=== PATIENT | male | born 1960 | race African-American/Black ===

== ENCOUNTER 2016-12-27 08:10 | Observation (INO) | payer OTHER, BC ==
[~2016-12-27] VITALS: Ht 185.4 cm; Wt 100.7 kg
[~2016-12-27 08:10] MED LIST: ALLERGY25 M2 PO; ASPIR 8181 M1 PO; ASPIR-TRIN325 MG PO; ASPIRIN325 MG PO; ATORVASTATIN CA40 MG PO; BENADRYL25 MG PO; CRESTOR10 MG PO; CRESTOR5 MG PO; DELTASONE20 M1 PO; FLEXERIL10 MG PO; IBUPROFEN800 MG PO; ISORDIL5 MG PO; ISOSORBIDE MONO60 MG PO; LEVOFLOXACIN500 MG PO; LISINOPRIL20 MG PO; LORTAB 5-325 M1 EACH PO; MAG-AL PLUS SUS30 ML PO; METAMUCIL POWD798 GM PO; METOPROLOL TART50 MG PO; MUCUS ER600 MG PO; NITROSTAT0.4 MG SL; PEPCID20 MG PO; PERCOCET 5/31 TABLET PO; PLAVIX75 MG PO; PREDNISONE10 MG PO; PROVENTIL,2.5 MG/3 M IH; RANEXA500 MG PO; ROBITUSSIN NIG118 ML PO; SKELAXIN800 MG PO; TESSALON PERLE100 MG PO; TOPROL XL50 MG PO; TYLENOL REGULA325 MG PO; ZESTRIL,PRINIVI20 MG PO; ZOFRAN ODT4 MG PO; [UNRECOGNIZED DRUG - REMARK]
[2016-12-27 09:39] LABS: HEMATOCRIT 40.3 % (38.0-50.0); MCH 28.8 PG (29.0-34.0); MEAN PLAT.VOLUME 10.9 uM^3 (9.0-12.4); PLATELET COUNT 235 K/uL (156-360); RBC DIS.WIDTH-CV 14.3 % (11.8-14.6); RBC DIS.WIDTH-SD 47.5 % (39-53); RED BLOOD COUNT 4.48 M/uL (4.00-5.50); WHITE BLOOD COUNT 5.3 K/uL (4.1-10.2)
[2016-12-27 09:50] LABS: CHLORIDE 106 mEq/L (99-109); POTASSIUM 4.4 mEq/L (3.7-5.4); SODIUM 140 mEq/L (136-147)
[2016-12-27 09:51] LABS: GLUCOSE 143 mg/dL (70-99)
[2016-12-27 09:53] LABS: ANION GAP 7 MEQ/L (2-14)
[2016-12-27 09:55] LABS: GFR ESTIMATE (CALCULATED) > 59 mL/min/
[2016-12-27 09:56] LABS: UREA NITROGEN (BUN) 17 mg/dL (9-23)
[2016-12-27 10:02] LABS: TROP-I INTERPRETATION NEGATIVE; TROPONIN-I < 0.01 ng/mL (0.0-0.30)
[2016-12-27] MEDS ORDERED: TRAMADOL HCL50 MG PO (12:58)
[2016-12-27] MEDS ORDERED: CLOBETASOL PROP60 GM TP (12:58)
[2016-12-27] MEDS ORDERED: IBUPROFEN800 MG PO (12:59)
[2016-12-27] MEDS ORDERED: NITROSTAT0.4 MG SL (13:00)
[2016-12-27] MEDS ORDERED: COLCRYS0.6 MG PO (13:02)
[2016-12-27] MEDS ORDERED: NEXIUM20 MG PO (13:04)
[2016-12-27] MEDS ORDERED: RANEXA500 MG PO (13:04)
[2016-12-27 13:30] VITALS: BP 148/87
[2016-12-27 14:31] VITALS: BP 148/87
[2016-12-27 15:25] VITALS: BP 104/51
[2016-12-27 16:30] LABS: TROP-I INTERPRETATION NEGATIVE; TROPONIN-I 0.02 ng/mL (0.0-0.30)
[2016-12-27 20:30] VITALS: BP 128/72
[2016-12-27 22:13] LABS: TROP-I INTERPRETATION NEGATIVE; TROPONIN-I 0.04 ng/mL (0.0-0.30)
[2016-12-27 23:19] VITALS: BP 137/76
[2016-12-28 03:39] VITALS: BP 154/91
[2016-12-28 08:00] VITALS: BP 166/88; BP 166/98
[2016-12-28 10:45] LABS: INTER. NORMALIZED RATIO 1.1; PROTHROMBIN TIME 10.7 (9.2-11.2); PTT 28.9 (25-32)
[2016-12-28 19:17] VITALS: BP 142/78
[2016-12-28 23:40] VITALS: BP 142/84
[2016-12-29 04:19] VITALS: BP 138/80
[2016-12-29 06:50] LABS: ANION GAP 7 MEQ/L (2-14); CHLORIDE 106 MEQ/L (99-109); GFR ESTIMATE (CALCULATED) > 59 mL/min/; GLUCOSE 122 mg/dL (70-99); POTASSIUM 4.1 MEQ/L (3.7-5.4); SAMPLE HEMOLYSIS CHECK 0; SAMPLE ICTERIC CHECK 0; SAMPLE LIPEMIA CHECK 0; SODIUM 139 MEQ/L (136-147); UREA NITROGEN (BUN) 7 mg/dL (9-23)
[2016-12-29 07:17] LABS: EOSINOPHIL COUNT 0.1 K/uL (0-0.3); HEMATOCRIT 39.3 % (38.0-50.0); IMMATURE GRANULOCYTE (%) 0.2 % (0.0-0.7); INSTRUMENT ABS NEUTROPHIL CT 5.9 K/uL; LYMPHOCYTE COUNT 1.4 K/uL (1.0-2.8); MCH 29.2 PG (29.0-34.0); MCHC 32.8 G/DL (30.0-36.0); MCV 88.9 FL (86-99); MEAN PLAT.VOLUME 10.7 uM^3 (9.0-12.4); MONOCYTE (%) 8.5 % (3-12); MONOCYTE COUNT 0.7 K/uL (0-0.8); NEUTROPHIL (%) 73.1 % (45-76); NEUTROPHIL COUNT 5.9 K/uL (1.8-6.4); PLATELET COUNT 229 K/uL (156-360); RBC DIS.WIDTH-CV 14.5 % (11.8-14.6); RBC DIS.WIDTH-SD 47.5 % (39-53); RED BLOOD COUNT 4.42 M/uL (4.00-5.50)
[2016-12-29 08:59] VITALS: BP 136/83
[2016-12-29] MEDS ORDERED: AMLODIPINE BESYL5 MG PO (12:54)
== END 2016-12-29 14:20 | disposition home or self-care (01) ==
LOC: EME 08:10 → EDOF 10:41 → 5WEST 10:41 → 4EAST 10:41 → EDOF 10:41 → 5WEST 13:26 → 4EAST 12-28 19:10
PROVIDERS: Hospitalist; Internal Medicine; Internal Medicine Cardiovascular Disease
DX: I25.110 Atherosclerotic heart disease of native coronary artery with unstable angina pectoris (principal); I25.82 Chronic total occlusion of coronary artery; I10 Essential (primary) hypertension; E78.5 Hyperlipidemia, unspecified; R73.03 Prediabetes; F17.210 Nicotine dependence, cigarettes, uncomplicated; Z95.1 Presence of aortocoronary bypass graft; Z95.5 Presence of coronary angioplasty implant and graft; G89.29 Other chronic pain; M54.9 Dorsalgia, unspecified; M10.9 Gout, unspecified
CPT/HCPCS: 71020; 80048; 84484; 84550; 85025; 85027; 85347; 85610; 85730; 93005; 99281; 99285; C1725; C1750; C1769; C1874; C1887; C1894; G0378; J0360; J1644; J1650; J2250; J2405; J2765; J3010; J7030